=== PATIENT | male | born 1985 | race Caucasian/White ===

== ENCOUNTER → 2021-04-29 | Outpatient (CLI) | payer OTHER ==
--- NOTE | 2021-04-29 14:09 | XR ---
EXAMINATION TYPE: XR lumbar spine 2 or 3V DATE OF EXAM: 04/29/2021 COMPARISON: None HISTORY: Lifting injury at work mid to lower back pain TECHNIQUE: 3 view lumbar spine FINDINGS: There are 5 lumbar-type vertebral bodies. The pedicles are intact. Disc heights are preserv ed. Vertebral body heights are preserved. Alignment is normal. IMPRESSION: 1. Normal three-view lumbar spine
--- NOTE | 2021-04-29 14:10 | XR ---
EXAMINATION TYPE: XR thoracic spine complete DATE OF EXAM: 04/29/2021 COMPARISON: Lumbar spine same date HISTORY: Low back pain TECHNIQUE: 3 views thoracic spine FINDINGS: Thoracic vertebral bodies appear intact. Alignment appears normal. Disc heights are preserv ed. Vertebral body heights are preserved. IMPRESSION: 1. Normal three-view thoracic spine.
== END | disposition home or self-care (01) ==
LOC: RADXRMAIN 13:31
PROVIDERS: ATTEND Emergency Medicine
DX: M54.6 Pain in thoracic spine (principal)
CPT/HCPCS: 72072; 72100